=== PATIENT | male | born 1985 | race Caucasian/White ===

== ENCOUNTER 2021-10-20 13:32 | Outpatient (REF) | payer OTHER, SELFPAY ==
[2021-10-20 16:41] LABS: MANUAL DIFF FLAG NO
[2021-10-20 16:55] LABS: Basophils Percent Auto 0.9 % (0-2); Eosinophils Absolute Auto 0.1 X10*3/uL (0.0-0.4); Eosinophils Percent Auto 2.6 % (0-4); Hematocrit 44.2 % (42.0-52.0); Hemoglobin 14.7 g/dl (14.0-18.0); Imm Gran Abs Auto 0.02 X10*3/uL (0.00-0.03); Imm Gran Pct Auto 0.4 % (0.0-0.4); Lymphocytes Absolute Auto 1.5 X10*3/uL (1.2-4.9); Lymphocytes Percent Auto 32.3 % (20-40); Mean Corpuscular HGB Conc 33.3 g/dl (31.0-36.0); Mean Corpuscular Hemoglobin 29.1 pg (27.0-33.0); Mean Corpuscular Volume 87.5 fL (80.0-98.0); Mean Platelet Volume 11.2 fL (9.4-12.4); Monocytes Absolute Auto 0.5 X10*3/uL (0.1-1.2); Monocytes Percent Auto 10.8 % (2-11); Neutrophils Absolute Auto 2.5 x10*3/uL (2.0-8.3); Platelet Count 213 X10*3/uL (160-400); Red Blood Count 5.05 X10*6/uL (4.60-5.80); Red Cell Distribution Width 12.1 % (11.0-16.0); White Blood Count 4.7 X10*3/uL (4.8-10.8)
[2021-10-20 17:09] LABS: Alanine Aminotransferase 33 U/L (0-40); Albumin Level 4.3 g/dL (3.5-5.0); Alkaline Phosphatase 56 U/L (39-117); Anion Gap 11 (12-20); Aspartate Amino Transferase 19 U/L (5-37); Bilirubin Total 0.6 mg/dL (0.0-1.0); Blood Urea Nitrogen 12 mg/dL (9-16); Calcium 8.9 mg/dL (8.4-10.2); Carbon Dioxide 29 mmol/L (22-29); Chloride 105 mmol/L (96-108); Cholesterol 201 mg/dL; Estimated Glomerular Filt Rate > 60; Glucose Fasting 94 mg/dL (60-99); HDL Cholesterol 38 mg/dL; LDL Cholesterol Calculated 152 mg/dl; Potassium 4.2 mmol/L (3.3-5.1); Sodium 141 mmol/L (135-145); Total Protein 6.9 g/dL (6.5-8.0); Triglycerides 57 mg/dL
[2021-10-20 17:29] LABS: TSH reflex Free T4 1.28 uIU/mL (0.32-4.0)
== END 2021-10-20 13:33 | disposition home or self-care (01) ==
LOC: HO.HMGCLDS 13:32
PROVIDERS: PCP Internal Medicine; Visit Provider Internal Medicine
DX: Z00.01 Encounter for general adult medical examination with abnormal findings (principal); Z80.8 Family history of malignant neoplasm of other organs or systems
CPT/HCPCS: 36415; 80053; 80061; 84443; 85025

== ENCOUNTER 2021-11-01 12:46 | Outpatient (REF) | payer OTHER, SELFPAY ==
--- NOTE | ~2021-11-01 | US_ITS ---
EXAMINATION: US THYROID CLINICAL INFORMATION: Palpable thyroid. Family history of thyroid cancer. COMPARISON: None TECHNIQUE: Linear transducer grayscale and color Doppler examination with attention to the region of the thyroid. FINDINGS: SIZE: Measurements of the thyroid lobes and nodules are given in sagittal, anteroposterior and transverse dimensions respectively. Right Thyroid Lobe: 4.7 x 1.4 x 1.3 cm, volume 4.5 mL. Parenchyma: The gland echotexture is homogeneous. Thyroid vascularity is normal. Left Thyroid Lobe: 5.1 x 1.1 x 1.3 cm, volume 3.8 mL. Parenchyma: The gland echotexture is homogeneous. Thyroid vascularity is normal. Isthmus: 0.2 cm in maximum AP dimension. No focal thyroid nodule is seen. NODES: No lymphadenopathy is seen in the tissue surrounding the thyroid gland. US/US thyroid IMPRESSION: Normal thyroid ultrasound.
== END 2021-11-01 12:47 | disposition home or self-care (01) ==
LOC: HO.HMGCX 12:46
PROVIDERS: PCP Internal Medicine; Visit Provider Internal Medicine
DX: E07.89 Other specified disorders of thyroid (principal); Z80.8 Family history of malignant neoplasm of other organs or systems
CPT/HCPCS: 76536

== ENCOUNTER 2022-11-22 12:54 | Outpatient (AMB) | payer OTHER, SELFPAY ==
--- NOTE | 2022-11-22 12:57 | MHC.PC.OV ---
Vital Signs 11/22/22 12:58 Height 5 ft 8 in Weight 163 lb BMI 24.8 BP 106/66 Blood Pressure Location Lt brachial Position Sitting Pulse 77 Pulse Source Pulse Oximeter Pulse Oximetry (%) 97 Oxygen Delivery Method Room Air Intake Visit Reasons: Due for Annual PE 10/2022 Intake Note: Pt is here today for PE. Allergies No Known Allergies Allergy (Verified 11/22/22 13:00) Medication List - Last Reconciled 11/22/22 by Tigre Hernandez MD No Known Home Meds Tobacco use date assessed: 11/22/22 Dental Screening Dental Screen Date: 11/22/22 Did you have a dental visit in the last 12 months?: Yes Did you have a dental problem in the last 6 months where you did not have access to dental care?: No Was dental information given to patient?: Patient has dentist HPI Due for Annual PE 10/2022 HPI Details Patient is 37-year-old gentleman came in today for physical exam Patient have a history of migraine headache but stable Last time he was seen he had labs done, his white count came back slightly low We will be repeating labs again including TSH as patient have strong family history of thyroid disease PFSH Medical History Migraines Family History Maternal Grandfather Colon cancer Maternal Grandmother Hypertension Heart disease Social History Housing: House Alcohol intake: never Patient Tobacco Use Status: Never used Tobacco e-Cigarette/Vaping Use: Never Used Current occupational status: employed Cognitive needs: No Hearing needs: No Vision needs: No Questionnaire PHQ-9 Over the last 2 weeks, how often have you been bothered by any of the following problems? 1. Little interest or pleasure in doing things: not at all 2. Feeling down, depressed, or hopeless: not at all 3. Trouble falling or staying asleep, or sleeping too much: not at all 4. Feeling tired or having little energy: not at all 5. Poor appetite or overeating: not at all 6. Feeling bad about yourself - or that you are a failure or have let yourself or your family down: not at all 7. Trouble concentrating on things, such as reading the newspaper or watching television: not at all 8. Moving or speaking so slowly that other people could have noticed. Or the opposite - being so fidgety or restless that you have been moving around a lot more than usual: not at all 9. Thoughts that you would be better off or of hurting yourself in some way: not at all Total score: 0 Depression Screening Interpretation: Negative 01424 - PHQ-9 Billing: Yes Source: Developed by Drs. Ramon Baca, Alison Barney, Asher Walker and colleagues, with an educational sofi from [employer]. Thrive Questionnaire Date Thrive assessed: 11/22/22 I am a: Patient What is your living situation today?: I have a steady place to live Within the past 12 months, did the food you bought not last and you didn't have the money to get more?: Never true Within the past 12 months, did you worry whether your food would run out before you got money to buy more?: Never true Do you have trouble paying for medicines?: No Do you have trouble getting transportation to medical appointments?: No Do you have trouble paying your heating and electricity bill?: No Do you have trouble taking care of your child, family member or friend?: No Do you have trouble with day-to-day activities such as bathing, preparing meals, shopping, managing finances, etc.?: No Are you currently unemployed and looking for a job?: No Are you interested in more education?: No Please select the resources that you would like help with: None Currently or been in a relationship where the following occur: no concerns reported AUDIT C Alcohol Use Questionnaire (AUDIT-C) 1. How often do you have a drink containing alcohol?: Never 3. How often do you have six or more drinks on one occasion?: Never Total Score: 0 ISH-7 AMB Questionnaire ISH-7 Date ISH - 7 assessed: 11/22/22 Feeling nervous, anxious, or on edge: 0 = Not at all Not being able to stop or control worryin = Not at all Worrying too much about different things: 0 = Not at all Trouble relaxin = Not at all Being so restless that it is hard to sit still: 0 = Not at all Becoming easily annoyed or irritable: 0 = Not at all Feeling afraid as if something awful might happen: 0 = Not at all Total ISH-7 score (0-4 normal; 5-9 mild; 10-14 moderate; 15-21 severe): 0 Source: Developed by Drs. Ramon Baca, Alison Barney, Asher Walker and colleagues, with an educational sofi from [employer]. ISH-7 Assessment Billing ISH-7 Assessment Tool: ISH-7 Assessment 10030 Review of Systems Const Denies chills, Denies fever(s) and Denies headache(s) Eyes Denies blurry vision ENT Denies headache(s), Denies nasal discharge, Denies nasal obstruction, Denies odynophagia and Denies sinus pain Card Denies chest pain at rest and Denies chest pain with activity Resp Denies cough and Denies hemoptysis GI Denies diarrhea, Denies odynophagia, Denies vomiting and Denies hematemesis Reports as per HPI Musc Denies abnormal gait Skin/Breast Reports as per HPI Neuro Denies Neuro-related abnormal movements, Denies Abnormal speech present, Denies abnormal gait, Denies headache(s) and Denies Sensory deficit (Neuro) Psych Denies mood swings and Denies paranoia Endo Reports as per HPI Macario/Lymph Reports as per HPI Aller/Immun Reports as per HPI Physical exam (Primary Care) Vital Signs: Last Vital Signs Pulse 77 11/22/22 12:58 BP 106/66 11/22/22 12:58 Pulse Ox 97 11/22/22 12:58 Oxygen Delivery Method Room Air 11/22/22 12:58 BMI result Body Mass Index 24.8 Tobacco/Smoking Status: Tobacco use Status Tobacco use date assessed 11/22/22 11/22/22 13:04 Patient Tobacco Use Status Never used Tobacco 11/22/22 13:04 e-Cigarette/Vaping Use Never Used 11/22/22 12:59 PHQ-9: PHQ-9 Score PHQ-9: Total score 0 11/22/22 13:04 Depression Screening Interpretation: Negative Thrive Assessment: Date of Thrive Assessment Date Thrive assessed 11/22/22 11/22/22 13:04 Currently or been in a relationship where the following occur: no concerns reported Const General: cooperative, comfortable and no acute distress Orientation/consciousness: patient oriented x3 HENMT Head: Yes normocephalic and Yes atraumatic Eyes General: appearance normal, both eyes and all related structures Pupils: Equal, round and reactive pupils present EOM: EOMs intact bilaterally Neck Neck: Yes supple and No lymphadenopathy Thyroid: Thyroid normal Lymphatic: no lymphadenopathy noted Resp Effort & Inspection: normal respiratory effort and able to speak in complete sentences Auscultation: clear to auscultation bilaterally Cardio Heart sounds: S1 normal heart sound present and S2 normal heart sound present GI Palpation (GI): Soft to palpation and nontender Auscultation: normal bowel sounds General: Yes no CVA tenderness Back/Spine/Pelvis Back: no CVA tenderness Skin General skin exam: elasticity normal and turgor normal Neuro General: patient oriented x3 and gait normal Cranial nerves: Yes Equal, round and reactive pupils present Speech: No Abnormal speech present Sensory Exam: No Sensory deficit (Neuro) Coordination: tandem gait normal and Romberg test negative Extrem General: Yes normal exam except as noted and No edema Assessment and Plan Assessment & Plan (1) Encounter for general adult medical examination with abnormal findings: Code(s): Z00.01 - Encounter for general adult medical examination with abnormal findings (2) Migraine headache: Code(s): G43.909 - Migraine, unspecified, not intractable, without status migrainosus Qualifiers: Migraine type: without aura Status migrainosus presence: without status migrainosus Intractability: intractable Qualified Code(s): G43.019 - Migraine without aura, intractable, without status migrainosus (3) Neutropenia: Code(s): D70.9 - Neutropenia, unspecified Qualifiers: Neutropenia type: other Qualified Code(s): D70.8 - Other neutropenia Plan Patient is 37-year-old gentleman came in today for physical exam Patient have a history of migraine headache but stable Last time he was seen he had labs done, his white count came back slightly low We will be repeating labs again including TSH as patient have strong family history of thyroid disease Orders: Orders Complete Blood Count Auto Diff Today G43.909 - Migraine, unspecified, not intractable, without status migrainosus, Z00.01 - Encounter for general adult medical examination with abnormal findings Lipid Panel Today G43.909 - Migraine, unspecified, not intractable, without status migrainosus, Z00.01 - Encounter for general adult medical examination with abnormal findings Comprehensive Melbeta. Panel Fast Today G43.909 - Migraine, unspecified, not intractable, without status migrainosus, Z00.01 - Encounter for general adult medical examination with abnormal findings TSH reflex Free T4 Today G43.909 - Migraine, unspecified, not intractable, without status migrainosus, Z00.01 - Encounter for general adult medical examination with abnormal findings Coding Level of Care Code Est Pt Prev Care 18-39y(06528) Diagnoses Encounter for general adult medical examination with abnormal findings Z00.01 Intractable migraine without aura and without status migrainosus G43.019 Migraine type: without aura Status migrainosus presence: without status migrainosus Intractability: intractable Other neutropenia D70.8 Neutropenia type: other Additional Codes ISH-7 Assessment Billing - ISH-7 Assessment Tool: ISH-7 Assessment 65503 ([id number])
[2022-11-22 12:58] VITALS: BP 106/66; PULSE 77; O2SAT 97; BMI 24.8
== END 2022-11-22 14:46 | disposition home or self-care (01) ==
PROVIDERS: PCP Internal Medicine; Visit Provider Internal Medicine
DX: Z00.01 Encounter for general adult medical examination with abnormal findings (principal); G43.019 Migraine without aura, intractable, without status migrainosus; D70.8 Other neutropenia
CPT/HCPCS: 99395

== ENCOUNTER 2022-12-05 12:11 | Outpatient (REF) | payer OTHER, SELFPAY ==
[2022-12-05 13:25] LABS: MANUAL DIFF FLAG NO
[2022-12-05 13:43] LABS: Basophils Percent Auto 0.8 % (0-2); Eosinophils Absolute Auto 0.1 X10*3/uL (0.0-0.4); Eosinophils Percent Auto 2.5 % (0-4); Hematocrit 45.2 % (42.0-52.0); Imm Gran Abs Auto 0.01 X10*3/uL (0.00-0.03); Imm Gran Pct Auto 0.2 % (0.0-0.4); Lymphocytes Absolute Auto 1.4 X10*3/uL (1.2-4.9); Lymphocytes Percent Auto 29.5 % (20-40); Mean Corpuscular HGB Conc 33.2 g/dl (31.0-36.0); Mean Corpuscular Hemoglobin 29.2 pg (27.0-33.0); Mean Corpuscular Volume 87.9 fL (80.0-98.0); Mean Platelet Volume 11.1 fL (9.4-12.4); Monocytes Absolute Auto 0.5 X10*3/uL (0.1-1.2); Monocytes Percent Auto 10.8 % (2-11); Neutrophils Absolute Auto 2.7 x10*3/uL (2.0-8.3); Neutrophils Percent Auto 56.2 % (45-73); Platelet Count 215 X10*3/uL (160-400); Red Blood Count 5.14 X10*6/uL (4.60-5.80); White Blood Count 4.8 X10*3/uL (4.8-10.8)
[2022-12-05 14:19] LABS: Alanine Aminotransferase 33 U/L (0-40); Albumin Level 4.5 g/dL (3.5-5.0); Alkaline Phosphatase 54 U/L (39-117); Anion Gap 12 (12-20); Aspartate Amino Transferase 21 U/L (5-37); Bilirubin Total 0.8 mg/dL (0.0-1.0); Blood Urea Nitrogen 14 mg/dL (9-16); Calcium 9.2 mg/dL (8.4-10.2); Carbon Dioxide 27 mmol/L (22-29); Chloride 104 mmol/L (96-108); Cholesterol 221 mg/dL (<200); Estimated Glomerular Filt Rate > 60; Glucose Fasting 89 mg/dL (60-99); HDL Cholesterol 38 mg/dL (>40); LDL Cholesterol Calculated 166 mg/dL (<100); Potassium 3.8 mmol/L (3.3-5.1); Sodium 139 mmol/L (135-145); Total Protein 7.3 g/dL (6.5-8.0); Triglycerides 89 mg/dL (<150)
[2022-12-05 14:36] LABS: TSH reflex Free T4 1.83 uIU/mL (0.32-4.0)
== END 2022-12-05 12:12 | disposition home or self-care (01) ==
LOC: HO.HMGCLDS 12:11
PROVIDERS: PCP Internal Medicine; Visit Provider Internal Medicine
DX: Z00.01 Encounter for general adult medical examination with abnormal findings (principal); G43.909 Migraine, unspecified, not intractable, without status migrainosus
CPT/HCPCS: 36415; 80053; 80061; 84443; 85025

== ENCOUNTER 2023-11-22 14:17 | Outpatient (AMB) | payer OTHER, SELFPAY ==
[2023-11-22 14:25] VITALS: BP 112/80; PULSE 74; O2SAT 98; BMI 25.4
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
== END 2023-11-22 15:26 | disposition home or self-care (01) ==
PROVIDERS: PCP Internal Medicine; Visit Provider Internal Medicine
DX: Z00.00 Encounter for general adult medical examination without abnormal findings (principal); E78.9 Disorder of lipoprotein metabolism, unspecified

== ENCOUNTER → 2023-11-22 14:17 | Outpatient (BNVA) | payer OTHER, SELFPAY | PROVIDERS: PCP Internal Medicine; Visit Provider Internal Medicine | DX: Z00.01 Encounter for general adult medical examination with abnormal findings (principal); E78.9 Disorder of lipoprotein metabolism, unspecified | CPT/HCPCS: 96127; 99395 ==

== ENCOUNTER 2024-02-06 13:07 | Outpatient (REF) | payer OTHER, SELFPAY ==
[2024-02-06 16:16] LABS: MANUAL DIFF FLAG NO
[2024-02-06 16:33] LABS: Basophils Absolute Auto 0.1 X10*3/uL (0.0-0.2); Basophils Percent Auto 1.1 % (0-2); Eosinophils Absolute Auto 0.1 X10*3/uL (0.0-0.4); Eosinophils Percent Auto 2.4 % (0-4); Hematocrit 44.5 % (42.0-52.0); Imm Gran Abs Auto 0.02 X10*3/uL (0.00-0.03); Imm Gran Pct Auto 0.4 % (0.0-0.4); Lymphocytes Absolute Auto 1.5 X10*3/uL (1.2-4.9); Lymphocytes Percent Auto 27.5 % (20-40); Mean Corpuscular HGB Conc 33.7 g/dl (31.0-36.0); Mean Corpuscular Hemoglobin 29.5 pg (27.0-33.0); Mean Corpuscular Volume 87.4 fL (80.0-98.0); Monocytes Absolute Auto 0.5 X10*3/uL (0.1-1.2); Monocytes Percent Auto 9.7 % (2-11); Neutrophils Absolute Auto 3.2 x10*3/uL (2.0-8.3); Neutrophils Percent Auto 58.9 % (45-73); Platelet Count 218 X10*3/uL (160-400); Red Blood Count 5.09 X10*6/uL (4.60-5.80); Red Cell Distribution Width 12.1 % (11.0-16.0); White Blood Count 5.4 X10*3/uL (4.8-10.8)
[2024-02-06 21:46] LABS: Alanine Aminotransferase 44 U/L (0-40); Albumin Level 4.4 g/dL (3.5-5.0); Alkaline Phosphatase 54 U/L (39-117); Anion Gap 15 (12-20); Aspartate Amino Transferase 28 U/L (5-37); Bilirubin Total 0.6 mg/dL (0.0-1.0); Blood Urea Nitrogen 10 mg/dL (9-16); Calcium 9.5 mg/dL (8.4-10.2); Carbon Dioxide 23 mmol/L (22-29); Chloride 108 mmol/L (96-108); Cholesterol 233 mg/dL (<200); Estimated Glomerular Filt Rate > 60; Glucose Fasting 81 mg/dL (60-99); HDL Cholesterol 37 mg/dL (>40); LDL Cholesterol Calculated 174 mg/dL (<100); Potassium 4.1 mmol/L (3.3-5.1); Sodium 142 mmol/L (135-145); Total Protein 7.1 g/dL (6.5-8.0); Triglycerides 114 mg/dL (<150)
[2024-02-06 22:05] LABS: TSH reflex Free T4 2.14 uIU/mL (0.32-4.0)
== END 2024-02-06 13:08 | disposition home or self-care (01) ==
LOC: HO.HMGCLDS 13:07
PROVIDERS: PCP Internal Medicine; Visit Provider Internal Medicine
DX: Z00.01 Encounter for general adult medical examination with abnormal findings (principal); E78.9 Disorder of lipoprotein metabolism, unspecified
CPT/HCPCS: 36415; 80053; 80061; 84443; 85025

== ENCOUNTER 2024-03-13 13:49 | Outpatient (AMB) | payer OTHER, SELFPAY ==
--- NOTE | 2024-03-13 13:51 | MHC.PC.OV ---
Vital Signs 03/13/24 13:52 Height 5 ft 8 in Weight 169 lb 8 oz BMI 25.8 BP 128/72 Blood Pressure Location Rt brachial Position Sitting Pulse 74 Pulse Source Pulse Oximeter Pulse Oximetry (%) 98 Oxygen Delivery Method Room Air Intake Visit Reasons: F/U Allergies No Known Allergies Allergy (Verified 03/13/24 13:52) Medication List - Last Reconciled 03/13/24 by Tigre Hernandez MD simvastatin 20 mg PO DAILY Tobacco use date assessed: 03/13/24 Dental Screening Dental Screen Date: 03/13/24 Did you have a dental visit in the last 12 months?: No Did you have a dental problem in the last 6 months where you did not have access to dental care?: No Was dental information given to patient?: Patient has dentist HPI F/U HPI Details Patient is a 39-year-old gentlemen with a history of lipid disorder, last time seen was November of 2023 when he came in for physical examination Recently labs done is LDL came back at 174 which has worsened from before, it was 166 in December of 2022 Patient also have a low HDL of 37 He came in today to talk about starting medication . - There is an acknowledged familial predisposition to hypercholesterolemia, indicated by the patient's mother's similar condition. - Acknowledged importance of dietary influence alongside genetic factors in managing cholesterol levels. - Emphasized risk of cardiovascular events like myocardial infarction or cerebrovascular accident if high cholesterol persists without treatment. Review of Systems - Cardiovascular: Denies chest pain, denies shortness of breath. - General: No fever no chills - Neurological: No headaches no dizziness - Ear nose throat: No sore throat no hearing difficulty no ear pain - Cardiovascular: No syncope, no chest pain, no palpitations - Gastrointestinal: No nausea vomiting or diarrhea - Endocrine: No polyuria polydipsia no heat intolerance - Genitourinary: No dysuria , no blood in urine Physical Exam General: No acute distress HEENT: No acute findings Neck: Supple Respiratory system: Able to talk in full sentences, no audible wheeze cardiovascular: S1-S2 regular in rate and rhythm, no chest pains, no shortness of breath Gastrointestinal: No pain Extremities: No new findings 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 - Schedule a follow-up blood test in mid-April to assess the efficacy of the current medication. - Maintain medication adherence and regularly obtain prescriptions from the pharmacy. - Document the blood test appointment in a personal calendar or mobile device. - No need to stop the medication; it should be continued long-term. - Plan for routine blood tests every six months if current treatment is successful. - Maintain awareness of any potential symptoms and report any concerns. [facility] Medical History Migraines Family History Maternal Grandfather Colon cancer Maternal Grandmother Hypertension Heart disease Social History Housing: House Alcohol intake: never Patient Tobacco Use Status: Never used Tobacco e-Cigarette/Vaping Use: Never Used service: No Current occupational status: employed Cognitive needs: No Hearing needs: No Vision needs: No Questionnaire PHQ-9 Over the last 2 weeks, how often have you been bothered by any of the following problems? 1. Little interest or pleasure in doing things: not at all 2. Feeling down, depressed, or hopeless: not at all 3. Trouble falling or staying asleep, or sleeping too much: not at all 4. Feeling tired or having little energy: not at all 5. Poor appetite or overeating: not at all 6. Feeling bad about yourself - or that you are a failure or have let yourself or your family down: not at all 7. Trouble concentrating on things, such as reading the newspaper or watching television: not at all 8. Moving or speaking so slowly that other people could have noticed. Or the opposite - being so fidgety or restless that you have been moving around a lot more than usual: not at all 9. Thoughts that you would be better off or of hurting yourself in some way: not at all Total score: 0 Depression Screening Interpretation: Negative Depression Screening Done: Yes 32260 - PHQ-9 Billing: Yes Source: Developed by Drs. Ramon Baca, Alison Barney, Asher Walker and colleagues, with an educational sofi from [email or web address]. Thrive Questionnaire Date Thrive assessed: 03/13/24 I am a: Patient What is your living situation today?: I have a steady place to live Within the past 12 months, did the food you bought not last and you didn't have the money to get more?: Often true Within the past 12 months, did you worry whether your food would run out before you got money to buy more?: Often true Do you have trouble paying for medicines?: No Do you have trouble getting transportation to medical appointments?: I choose not to answer this question Do you have trouble paying your heating and electricity bill?: No Do you have trouble taking care of your child, family member or friend?: No Do you have trouble with day-to-day activities such as bathing, preparing meals, shopping, managing finances, etc.?: No Are you currently unemployed and looking for a job?: No Are you interested in more education?: No Please select the resources that you would like help with: None Currently or been in a relationship where the following occur: No concerns reported THRIVE Score: 2 AUDIT C Alcohol Use Questionnaire (AUDIT-C) 1. How often do you have a drink containing alcohol?: Never 3. How often do you have six or more drinks on one occasion?: Never Total Score: 0 Score Reviewed/Action Taken: Yes ISH-7 AMB Questionnaire ISH-7 Date ISH - 7 assessed: 03/13/24 Feeling nervous, anxious, or on edge: 0 = Not at all Not being able to stop or control worryin = Not at all Worrying too much about different things: 0 = Not at all Trouble relaxin = Not at all Being so restless that it is hard to sit still: 0 = Not at all Becoming easily annoyed or irritable: 0 = Not at all Feeling afraid as if something awful might happen: 0 = Not at all Total ISH-7 score (0-4 normal; 5-9 mild; 10-14 moderate; 15-21 severe): 0 Source: Developed by Drs. Ramon Baca, Alison Barney, Asher Walker and colleagues, with an educational sofi from [email or web address]. ISH-7 Assessment Billing ISH-7 Assessment Tool: ISH-7 Assessment 85184 Review of Systems Const Denies chills and Denies fever(s) ENT Denies epistaxis and Denies nasal discharge Card Denies chest pain Resp Denies chest congestion, Denies cough and Denies hemoptysis GI Denies diarrhea and Denies nausea Skin/Breast Denies rash Neuro Reports no additional complaints Psych Reports no additional complaints Endo Reports no additional complaints Physical exam (Primary Care) Vital Signs: Last Vital Signs Pulse 74 03/13/24 13:52 BP 128/72 03/13/24 13:52 Pulse Ox 98 03/13/24 13:52 Oxygen Delivery Method Room Air 03/13/24 13:52 BMI result Body Mass Index 25.8 Tobacco/Smoking Status: Tobacco use Status Tobacco use date assessed 03/13/24 03/13/24 14:00 Patient Tobacco Use Status Never used Tobacco 03/13/24 13:54 e-Cigarette/Vaping Use Never Used 03/13/24 13:54 PHQ-9: PHQ-9 Score PHQ-9: Total score 0 03/13/24 13:55 Depression Screening Interpretation: Negative Thrive Assessment: Date of Thrive Assessment Date Thrive assessed 03/13/24 03/13/24 14:00 Currently or been in a relationship where the following occur: No concerns reported Const General: cooperative, comfortable and no acute distress Orientation/consciousness: patient oriented x3 HENMT Head: Yes normocephalic Eyes General: appearance normal, both eyes and all related structures Neck Neck: Yes supple Resp Effort & Inspection: normal respiratory effort, no cough and no stridor Cardio Rhythm: regular rhythm Heart sounds: S1 normal heart sound present and S2 normal heart sound present Skin General skin exam: turgor normal Neuro General: patient oriented x3, tone normal and moves all extremities Extrem Right lower extremity: no edema Left lower extremity: no edema Coding Level of Care Code Est Pt Level 3 (93515) Diagnoses Lipid disorder E78.9 Additional Codes ISH-7 Assessment Billing - ISH-7 Assessment Tool: ISH-7 Assessment 59623 ([id number]) PHQ-9 - 97288 - PHQ-9 Billing: Yes ([id number]) Assessment & Plan Assessment & Plan (1) Lipid disorder: Code(s): E78.9 - Disorder of lipoprotein metabolism, unspecified Category: Medical Plan Patient is a 39-year-old gentlemen with a history of lipid disorder, last time seen was November of 2023 when he came in for physical examination Recently labs done is LDL came back at 174 which has worsened from before, it was 166 in December of 2022 Patient also have a low HDL of 37 He came in today to talk about starting medication . - There is an acknowledged familial predisposition to hypercholesterolemia, indicated by the patient's mother's similar condition. - Acknowledged importance of dietary influence alongside genetic factors in managing cholesterol levels. - Emphasized risk of cardiovascular events like myocardial infarction or cerebrovascular accident if high cholesterol persists without treatment. Review of Systems - Cardiovascular: Denies chest pain, denies shortness of breath. - General: No fever no chills - Neurological: No headaches no dizziness - Ear nose throat: No sore throat no hearing difficulty no ear pain - Cardiovascular: No syncope, no chest pain, no palpitations - Gastrointestinal: No nausea vomiting or diarrhea - Endocrine: No polyuria polydipsia no heat intolerance - Genitourinary: No dysuria , no blood in urine Physical Exam General: No acute distress HEENT: No acute findings Neck: Supple Respiratory system: Able to talk in full sentences, no audible wheeze cardiovascular: S1-S2 regular in rate and rhythm, no chest pains, no shortness of breath Gastrointestinal: No pain Extremities: No new findings 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 - Schedule a follow-up blood test in mid-April to assess the efficacy of the current medication. - Maintain medication adherence and regularly obtain prescriptions from the pharmacy. - Document the blood test appointment in a personal calendar or mobile device. - No need to stop the medication; it should be continued long-term. - Plan for routine blood tests every six months if current treatment is successful. - Maintain awareness of any potential symptoms and report any concerns. Orders: Orders Lipid Panel 4 Weeks E78.9 - Disorder of lipoprotein metabolism, unspecified Comprehensive [place]. Panel Fast 4 Weeks E78.9 - Disorder of lipoprotein metabolism, unspecified
[2024-03-13 13:52] VITALS: BP 128/72; PULSE 74; O2SAT 98; BMI 25.8
== END 2024-03-13 14:45 | disposition home or self-care (01) ==
PROVIDERS: PCP Internal Medicine; Visit Provider Internal Medicine
DX: E78.9 Disorder of lipoprotein metabolism, unspecified (principal)

== ENCOUNTER → 2024-03-13 13:49 | Outpatient (BNVA) | payer OTHER, SELFPAY | PROVIDERS: PCP Internal Medicine; Visit Provider Internal Medicine | DX: E78.9 Disorder of lipoprotein metabolism, unspecified (principal) | CPT/HCPCS: 96127; 99212 ==

== ENCOUNTER 2024-04-19 11:04 | Outpatient (REF) | payer OTHER, SELFPAY ==
[2024-04-19 13:56] LABS: Alanine Aminotransferase 40 U/L (0-40); Albumin Level 4.4 g/dL (3.5-5.0); Alkaline Phosphatase 54 U/L (39-117); Anion Gap 9 (12-20); Aspartate Amino Transferase 24 U/L (5-37); Bilirubin Total 0.5 mg/dL (0.0-1.0); Blood Urea Nitrogen 12 mg/dL (9-16); Calcium 9.5 mg/dL (8.4-10.2); Carbon Dioxide 28 mmol/L (22-29); Chloride 105 mmol/L (96-108); Cholesterol 150 mg/dL (<200); Estimated Glomerular Filt Rate > 60; Glucose Fasting 87 mg/dL (60-99); HDL Cholesterol 37 mg/dL (>40); LDL Cholesterol Calculated 102 mg/dL (<100); Sodium 138 mmol/L (135-145); Total Protein 7.3 g/dL (6.5-8.0); Triglycerides 58 mg/dL (<150)
== END 2024-04-19 11:05 | disposition home or self-care (01) ==
LOC: HO.HMGCLDS 11:04
PROVIDERS: PCP Internal Medicine; Visit Provider Internal Medicine
DX: E78.9 Disorder of lipoprotein metabolism, unspecified (principal)
CPT/HCPCS: 36415; 80053; 80061

== ENCOUNTER 2024-11-27 13:01 | Outpatient (REF) | payer OTHER, SELFPAY ==
[2024-11-27 16:55] LABS: Alanine Aminotransferase 25 U/L (0-40); Albumin Level 4.7 g/dL (3.5-5.0); Alkaline Phosphatase 53 U/L (39-117); Anion Gap 9 (12-20); Aspartate Amino Transferase 22 U/L (5-37); Blood Urea Nitrogen 11 mg/dL (9-16); Calcium 9.3 mg/dL (8.4-10.2); Carbon Dioxide 30 mmol/L (22-29); Chloride 105 mmol/L (96-108); Cholesterol 226 mg/dL (<200); Estimated Glomerular Filt Rate > 60; HDL Cholesterol 39 mg/dL (>40); Potassium 4.1 mmol/L (3.3-5.1); Sodium 140 mmol/L (135-145); Total Protein 7.2 g/dL (6.5-8.0); Triglycerides 89 mg/dL (<150)
== END 2024-11-27 13:02 | disposition home or self-care (01) ==
LOC: HO.HMGCLDS 13:01
PROVIDERS: PCP Internal Medicine; Visit Provider Internal Medicine
DX: Z00.01 Encounter for general adult medical examination with abnormal findings (principal); E78.9 Disorder of lipoprotein metabolism, unspecified; Z83.3 Family history of diabetes mellitus; Z80.8 Family history of malignant neoplasm of other organs or systems
CPT/HCPCS: 36415; 80053; 80061; 96127; 99396

== ENCOUNTER 2024-11-27 13:46 | Outpatient (AMB) | payer OTHER, SELFPAY ==
[2024-11-27 13:49] VITALS: BP 126/76; PULSE 76; O2SAT 98; BMI 25.7
--- NOTE | 2024-11-27 13:49 | A.OFFPC_ITS ---
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 - Patient stopped taking simvastatin wit hin the last month, plans dietary adjustments for management. - Family history of high cholesterol men tioned. 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 - Reports work stress related to family employment, involvement in brother's business. . Family History: - Mother with heart disease and diabetes - Brother with thyroid cancer, underwent surgery for thyroid removal. - Sister with normal thyroid. Health Maintenance - Discussion of cholesterol levels and f amilial risk, with consideration of diet for management. - Declined a flu vaccine during the visi t. Patient Instructions - Repeat cholesterol testing in four to five months. - Fasting required for upcoming choleste rol and sugar tests. - Monitor any thyroid changes; report if any unusual findings. Physically examined 1 year Review of Systems - General: No fever no chills - Neurological: No headaches no dizzin ess - Ear nose throat: No sore throat no hearing difficulty no ear pain - Cardiovascular: No syncope, no chest pain, no palpitations - Gastrointestinal: No nausea vomiting or diarrhea - Endocrine: No polyuria polydipsia no heat intolerance - Genitourinary: No dysuria - Skin: No new complaints Physical Exam General: Cooperative, healthy appearing, comfortable, no acute distress Orientation: Patient oriented x3 Limitations: None Head: Normal to inspection Ears: Within normal limit visually Nose: Normal external nose present Face and sinus: Normal facial exam Eyes: Appearance normal, extraocular movement intact pupils reactive Neck: Normal visual inspection and supple Respiratory: Normal respiratory effort and able to speak in complete sentences. Clear to auscultation, no stridor Cardiovascular: S1 and S2 RRR GI: Normal to inspection. Soft to palpation and nontender Skin: Turgor normal, no acute findings, Neuro: Patient oriented x3, motor sensory intact, balance intact, tandem pass Extremities: Normal to inspection, range of motion intact . [facility] Medical History Family history of thymus cancer Migraines Family History Maternal Grandfather Colon cancer Maternal Grandmother Hypertension Heart disease Social History Housing: House Alcohol intake: never Patient Tobacco Use Status: Never used Tobacco e-Cigarette/Vaping Use: Never Used service: No Current occupational status: employed Cognitive needs: No Hearing needs: No Vision needs: No Questionnaire PHQ-9 Over the last 2 weeks, how often have you been bothered by any of the following problems? 1. Little interest or pleasure in doing things: not at all 2. Feeling down, depressed, or hopeless: not at all 3. Trouble falling or staying asleep, or sleeping too much: not at all 4. Feeling tired or having little energy: not at all 5. Poor appetite or overeating: not at all 6. Feeling bad about yourself - or that you are a failure or have let yourself or your family down: not at all 7. Trouble concentrating on things, such as reading the newspaper or watching television: not at all 8. Moving or speaking so slowly that other people could have noticed. Or the opposite - being so fidgety or restless that you have been moving around a lot more than usual: not at all 9. Thoughts that you would be better off or of hurting yourself in some way: not at all Total score: 0 Depression Screening Interpretation: Negative Depression Screening Done: Yes 16708 - PHQ-9 Billing: Yes Source: Developed by Drs. Ramon Baca, Alison Barney, Asher Walker and colleagues, with an educational sofi from [employer]. Thrive Questionnaire Date Thrive assessed: 03/13/24 I am a: Patient What is your living situation today?: I have a steady place to live Within the past 12 months, did the food you bought not last and you didn't have the money to get more?: Often true Within the past 12 months, did you worry whether your food would run out before you got money to buy more?: Often true Do you have trouble paying for medicines?: No Do you have trouble getting transportation to medical appointments?: I choose not to answer this question Do you have trouble paying your heating and electricity bill?: No Do you have trouble taking care of your child, family member or friend?: No Do you have trouble with day-to-day activities such as bathing, preparing meals, shopping, managing finances, etc.?: No Are you currently unemployed and looking for a job?: No Are you interested in more education?: No Please select the resources that you would like help with: None Currently or been in a relationship where the following occur: Choked THRIVE Score: 3 AUDIT C Alcohol Use Questionnaire (AUDIT-C) 1. How often do you have a drink containing alcohol?: Never 2. How many drinks containing alcohol do you have on a typical day when you are drinking?: 1 or 2 3. How often do you have six or more drinks on one occasion?: Never Total Score: 0 Score Reviewed/Action Taken: Yes ISH-7 AMB Questionnaire ISH-7 Date ISH - 7 assessed: 03/13/24 Feeling nervous, anxious, or on edge: 0 = Not at all Not being able to stop or control worryin = Not at all Worrying too much about different things: 0 = Not at all Trouble relaxin = Not at all Being so restless that it is hard to sit still: 0 = Not at all Becoming easily annoyed or irritable: 0 = Not at all Feeling afraid as if something awful might happen: 0 = Not at all Total ISH-7 score (0-4 normal; 5-9 mild; 10-14 moderate; 15-21 severe): 0 Source: Developed by Drs. Ramon Baca, Alison Barney, Asher gonzalez nd colleagues, with an educational sofi from [employer]. ISH-7 Assessment Billing ISH-7 Assessment Tool: ISH-7 Assessment 30313 Physical exam (Primary Care) Vital Signs: Last Vital Signs Pulse 76 09/24/25 13:49 BP 126/76 11/27/24 13:49 Pulse Ox 98 11/27/24 13:49 Oxygen Delivery Method Room Air 11/27/24 13:49 BMI result Body Mass Index 25.7 Tobacco/Smoking Status: Tobacco use Status Tobacco use date assessed 03/13/24 11/27/24 13:50 Patient Tobacco Use Status Never used Tobacco 11/27/24 13:50 e-Cigarette/Vaping Use Never Used 11/27/24 13:50 PHQ-9: PHQ-9 Score PHQ-9: Total score 0 11/27/24 13:50 Depression Screening Interpretation: Negative Thrive Assessment: Date of Thrive Assessment Date Thrive assessed 03/13/24 11/27/24 13:50 Currently or been in a relationship where the following occur: Choked Coding Level of Care Code Est Pt Level 3 (62614) Est Pt Prev Care 40-64y(38827) Diagnoses Encounter for general adult medical examination with abnormal findings Z00.01 Lipid disorder E78.9 Family history of diabetes mellitus Z83.3 Family history of thyroid cancer Z80.8 Additional Codes PHQ-9 - 14189 - PHQ-9 Billing: Yes ([id number]) ISH-7 Assessment Billing - ISH-7 Assessment Tool: ISH-7 Assessment 33643 ([id number]) Assessment & Plan Assessment & Plan (1) Encounter for general adult medical examination with abnormal findings: Code(s): Z00.01 - Encounter for general adult medical examination with abnormal findings Category: Medical (2) Lipid disorder: Code(s): E78.9 - Disorder of lipoprotein metabolism, unspecified Category: Medical (3) Family history of diabetes mellitus: Code(s): Z83.3 - Family history of diabetes mellitus Category: Medical (4) Family history of thyroid cancer: Code(s): Z80.8 - Family history of malignant neoplasm of other organs or systems Category: Medical Plan History of Present Illness The patient is a 39-year-old male presenting annual physical exam Hyperlipidemia: - Last LDL cholesterol level recorded in February was 174, - Medication (simvastatin) lowered LDL to 102. - Patient stopped taking simvastatin within the last month, plans dietary adjustments for management. - Family history of high cholesterol mentioned. 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 - Reports work stress related to family employment, involvement in brother's business. . Family History: - Mother with heart disease and diabetes - Brother with thyroid cancer, underwent surgery for thyroid removal. - Sister with normal thyroid. Patient had thyroid ultrasound last year which came out as within normal limit Health Maintenance - Discussion of cholesterol levels and familial risk, with consideration of diet for management. - Declined a flu vaccine during the visit. Patient Instructions - Repeat cholesterol testing in four to five months. - Fasting required for upcoming cholesterol and sugar tests. - Monitor any thyroid changes; report if any unusual findings. Physically examined 1 year . Orders: Orders Hemoglobin A1c 3 Months E78.9 - Disorder of lipoprotein metabolism, unspecified, Z00.01 - Encounter for general adult medical examination with abnormal findings, Z80.2 - Family history of malignant neoplasm of other respiratory and intrathoracic organs, Z80.8 - Family history of malignant neoplasm of other organs or systems, Z83.3 - Family history of diabetes mellitus Comprehensive [place]. Panel Fast 3 Months E78.9 - Disorder of lipoprotein metabolism, unspecified, Z00.01 - Encounter for general adult medical examination with abnormal findings, Z80.2 - Family history of malignant neoplasm of other respiratory and intrathoracic organs, Z80.8 - Family history of malignant neoplasm of other organs or systems, Z83.3 - Family history of diabetes mellitus Complete Blood Count Auto Diff 3 Months E78.9 - Disorder of lipoprotein me tabolism, unspecified, Z00.01 - Encounter for general adult medical examination with abnormal findings, Z80.2 - Family history of malignant neoplasm of other respiratory and intrathoracic organs, Z80.8 - Family history of malignant neoplasm of other organs or systems, Z83.3 - Family history of diabetes mellitus Lipid Panel 3 Months E78.9 - Disorder of lipoprotein metabolism, unspecified, Z00.01 - Encounter for general adult medical examination with abnormal findings, Z80.2 - Family history of malignant neoplasm of other respiratory and intrathoracic organs, Z80.8 - Family history of malignant neoplasm of other organs or systems, Z83.3 - Family history of diabetes mellitus TSH reflex Free T4 3 Months E78.9 - Disorder of lipoprotein metabolism, unspecified, Z00.01 - Encounter for general adult medical examination with abnormal findings, Z80.2 - Family history of malignant neoplasm of other respiratory and intrathoracic organs, Z80.8 - Family history of malignant neoplasm of other organs or systems, Z83.3 - Family history of diabetes mellitus
== END 2024-11-27 14:14 | disposition home or self-care (01) ==
LOC: HO.HMCC 13:47
PROVIDERS: PCP Internal Medicine; Visit Provider Internal Medicine
DX: Z00.01 Encounter for general adult medical examination with abnormal findings (principal); E78.9 Disorder of lipoprotein metabolism, unspecified; Z83.3 Family history of diabetes mellitus; Z80.8 Family history of malignant neoplasm of other organs or systems